=== PATIENT | male | born 1985 | race Caucasian/White ===

== ENCOUNTER 2020-07-16 12:10 | Emergency (ER) | payer OTHER | END 2020-07-16 13:06 | disposition home or self-care (01) | LOC: JVIRT 12:10 | DX: Z11.59 Encounter for screening for other viral diseases (principal) | CPT/HCPCS: C9803; Q3014-GT; U0003 ==

== ENCOUNTER 2020-08-26 10:00 | Emergency (ER) | payer OTHER | END 2020-08-26 12:38 | disposition home or self-care (01) | LOC: JVIRT 10:00 | DX: Z03.818 Encounter for observation for suspected exposure to other biological agents ruled out (principal) | CPT/HCPCS: C9803; Q3014-GT; U0003 ==